=== PATIENT | female | born 1965 | race Caucasian/White ===

== ENCOUNTER → 2022-06-11 | Outpatient (CLI) | payer BC | LOC: COL.RAD 14:00 | DX: R22.1 Localized swelling, mass and lump, neck (principal); E04.2 Nontoxic multinodular goiter ==

== ENCOUNTER → 2022-07-03 | Outpatient (CLI) | payer BC ==
[~2022-07-03] VITALS: Ht 160 cm; Wt 86.4 kg
[~2022-07-03] MED LIST: CENTRUM SILVER1 TA2 PO; PRILOSEC 20MG20 MG PO; ZOCOR 20MG20 MG PO
[2022-07-03 07:41] VITALS: BP 148/77; PULSE 66; TEMP 98.2
[2022-07-03 08:50] VITALS: BP 160/89; PULSE 60
== END ==
LOC: COL.RAD 06:59
DX: E04.1 Nontoxic single thyroid nodule (principal)